=== PATIENT | male | born 1975 | race Caucasian/White ===

== ENCOUNTER → 2018-01-11 | Outpatient (CLI) | payer BC ==
--- NOTE | 2018-01-12 07:16 | CT ---
EXAMINATION TYPE: CT soft tissue neck w con DATE OF EXAM: 01/11/2018 HISTORY: Palpable mass on left side of neck. COMPARISON: NONE CT DLP: 613.8 mGycm. Automated Exposure Control for Dose Reduction was Utilized. TECHNIQUE: CT scan of the neck is performed with IV Contrast, patient injected with 100ml mL of Isov ue 300, axial images are obtained, coronal and sagittal reformatted images are reviewed. FINDINGS: Metallic BB is placed at level of palpable abnormality posterior left neck roughly C2-C3 di sc space level axial image 70. I see no worrisome solid or cystic mass or abnormal fluid collection a t this level. There are normal-appearing posterior paraspinal muscles symmetric to opposite right mike e. No inflammatory change is present. Airway: No gross abnormality seen. Parotid/submandibular glands: No gross abnormality seen. Carotid/Vascular Structures: No significant focal plaque at carotid bulb level bilaterally is seen. Osseous Structures: No suspicious findings identified. Other: No greater than 1 cm adenopathy is seen. Scattered subcentimeter lymph nodes are seen througho ut the neck bilaterally. IMPRESSION: No suspicious mass or adenopathy is present.
== END | disposition home or self-care (01) ==
LOC: RADCTMAIN 17:56
PROVIDERS: ATTEND Family Medicine
DX: R59.0 Localized enlarged lymph nodes (principal)
CPT/HCPCS: 70491; Q9967